=== PATIENT | female | born 1990 | race Caucasian/White ===

== ENCOUNTER 2019-08-26 18:32 | Observation (INO) | payer OTHER, BC ==
[~2019-08-26] VITALS: Ht 160 cm; Wt 95.3 kg
== END 2019-08-26 23:30 | disposition home or self-care (01) ==
LOC: SPU 18:32
PROVIDERS: ADMIT Specialist; ATTEND Specialist
DX: O9A.213 Injury, poisoning and certain other consequences of external causes complicating pregnancy, third trimester (principal); O26.893 Other specified pregnancy related conditions, third trimester; R10.30 Lower abdominal pain, unspecified; M25.559 Pain in unspecified hip; V89.2XXA Person injured in unspecified motor-vehicle accident, traffic, initial encounter; Y93.89 Activity, other specified; Y92.89 Other specified places as the place of occurrence of the external cause; Z3A.32 32 weeks gestation of pregnancy
CPT/HCPCS: G0378